=== PATIENT | male | born 1970 ===

== ENCOUNTER 2018-05-07 10:37 | Emergency (ER) | payer OTHER ==
[~2018-05-07] VITALS: Ht 180.3 cm; Wt 116.1 kg
== END 2018-05-07 21:18 | disposition home or self-care (01) ==
LOC: ER 10:37
DX: S33.5XXA Sprain of ligaments of lumbar spine, initial encounter (principal); M51.37 Other intervertebral disc degeneration, lumbosacral region; M51.27 Other intervertebral disc displacement, lumbosacral region; M50.322 Other cervical disc degeneration at C5-C6 level; R11.2 Nausea with vomiting, unspecified; X50.0XXA Overexertion from strenuous movement or load, initial encounter; Y93.89 Activity, other specified; Y92.69 Other specified industrial and construction area as the place of occurrence of the external cause; Y99.8 Other external cause status
CPT/HCPCS: 72141; 72158